=== PATIENT | female | born 1985 | race Caucasian/White ===

== ENCOUNTER 2022-05-13 10:56 | Emergency (ER) | payer BC, SELFPAY ==
--- NOTE | ~2022-05-13 | XR_ITS ---
EXAMINATION: XR shoulder RT min 2V DATE: 05/13/2022 11:30 INDICATION: Right shoulder pain. Fall. TECHNIQUE: 4 views of right shoulder were obtained. COMPARISON: None. FINDINGS: Bone alignment is normal. There is a nondisplaced transverse fracture of distal clavicle. J oint spaces are normal. IMPRESSION: 1. Nondisplaced transverse fracture of distal right clavicle. Reviewed, dictated and finalized at location A. [employer]
--- NOTE | ~2022-05-13 | CT_ITS ---
CT Facial Bones Clinical Indication: Trauma Technique: 2mm axial scans were obtained through the facial bones followed by coronal reconstructions . Dose reduction technique was used on this scan by utilizing automated exposure control and iterativ e reconstruction technique. The dose-length product (DLP) was 365.09 mGy-cm. Findings: No fractures are identified. The nasal bones appear normal. Orbital margins are intact. The zygomatic arches appear normal bilater ally. There are scattered small paranasal sinus retention cysts or polyps. Retro-orbital soft tissues appear normal. There is mild right periorbital soft tissue swelling. Impression: No fracture is seen. No intraorbital abnormality. Mild right periorbital soft tissue swelling. Reviewed, dictated and finalized at location [] BALL [employer]IMMER Impression: No fracture is seen. No intraorbital abnormality. Mild right periorbital soft tissue swelling.
[2022-05-13 11:50] VITALS: BP 142/78; PULSE 93; RESP 14; TEMP 36.6; O2SAT 98
--- NOTE | 2022-05-13 11:54 | ECG_ITS ---
Measurements Intervals [place] Rate: 88 P: 42 NE: 161 QRS: 21 QRSD: 85 T: 12 QT: 337 QTc: 408 Interpretive Statements SINUS RHYTHM MODERATE VOLTAGE CRITERIA FOR LVH, CONSIDER NORMAL VARIANT [MEETS CRITERIA IN ONE OF: R(aVL), S(V1), R(V5), R(V5/V6)+S(V1)] NO PREVIOUS ECG AVAILABLE FOR COMPARISON Electronically Signed On 05-13-2022 13:24:35 [employer] by Remedios West M.D.
[2022-05-13 12:09] LABS: Basophils Absolute Auto 0.1 K/mm3 (0.0-0.1); Basophils Percent Auto 0.4 % (0.2-1.2); Eosinophils Absolute Auto 0.1 K/mm3 (0-0.3); Hematocrit 41.2 % (37.0-47.0); Hemoglobin 12.9 g/dL (12.0-15.0); Immature Granulocyte Absolute 0.02 K/mm3 (0.00-0.031); Immature Granulocyte Percent A 0.2 % (0-0.5); Lymphocytes Absolute Auto 2.19 K/mm3 (0.9-3.2); Lymphocytes Percent Auto 19.1 % (18.3-44.2); Mean Corpuscular HGB Conc 31.3 g/dl (32-36); Mean Corpuscular Hemoglobin 27.8 pg (26-34); Mean Corpuscular Volume 88.8 fl (80-100); Mean Platelet Volume 9.2 fl (7.4-10.4); Monocytes Absolute Auto 0.7 K/mm3 (0.1-0.6); Monocytes Percent Auto 5.9 % (2.6-8.5); Neutrophils Absolute Auto 8.4 K/mm3 (1.3-6.7); Neutrophils Percent Auto 73.4 % (45.5-73.1); Platelet Count Result 327 k/mm3 (150-375); Red Blood Count 4.64 M/mm3 (4.2-5.4); Red Cell Distribution Width 14.4 % (11.5-14.5); White Blood Count 11.4 K/mm3 (4.5-10.0)
[2022-05-13 12:19] LABS: Alanine Aminotransferase 35 U/L (6-35); Albumin Level 4.6 g/dL (3.5-5.1); Alkaline Phosphatase 79 U/L (38-126); Anion Gap 8 mmol/L (8-16); Aspartate Amino Transferase 43 U/L (14-36); Bilirubin,Total 0.8 mg/dL (0.2-1.3); Blood Urea Nitrogen 14 mg/dL (7-17); Calcium 8.7 mg/dL (8.4-10.2); Carbon Dioxide 26 mmol/L (22-30); Chloride 106 mmol/L (98-107); Estimated CRCL calculation 117 ml/min; Estimated Glomerular Filt Rate > 60; Glucose 115 mg/dL (65-110); Potassium 3.9 mmol/L (3.4-5.0); Sodium 140 mmol/L (137-145)
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
--- NOTE | 2022-05-13 13:20 | PC.NURSE ---
Pt taken to CT at this time
[2022-05-13 13:37] VITALS: BP 125/74; PULSE 86; RESP 18; O2SAT 97
== END 2022-05-13 14:23 | disposition home or self-care (01) ==
LOC: ANHED 14:09
PROVIDERS: Emergency Medicine; Emergency Provider Emergency Medicine
DX: S42.034A Nondisplaced fracture of lateral end of right clavicle, initial encounter for closed fracture (principal); S00.11XA Contusion of right eyelid and periocular area, initial encounter; Y04.0XXA Assault by unarmed brawl or fight, initial encounter
CPT/HCPCS: 36415; 70486; 73030; 80053; 85025; 93005; 99284